=== PATIENT | female | born 1950 | race African-American/Black ===

== ENCOUNTER 2017-03-15 13:24 | Emergency (ER) | payer OTHER ==
[2017-03-15] MEDS ORDERED: DIPH/PERTUSS(ACELL)/TETANUS VAC/PF 0.5 ML SYR (>=10YO) IM ONE (14:03)
[2017-03-15] MEDS ORDERED: LIDOCAINE 1% INJ-PF (10 MG/ML) 30 ML SDV INJ ONE (14:03)
--- NOTE | 2017-03-15 14:55 | ER Document Report ---
HPI - HPI Patient complains to provider of: Finger laceration Onset: This afternoon Onset/Duration: Sudden Quality of pain: Achy Pain Level: 1 Context: Patient states that she was putting water into a plastic container and the container cut her right fourth fingertip. Patient with laceration to the pad of her finger. Patient is uncertain when her last tetanus immunization was Associated Symptoms: Other - Finger laceration Exacerbated by: Denies Relieved by: Denies Similar symptoms previously: No Recently seen / treated by doctor: No - ROS ROS below otherwise negative: Yes Systems Reviewed and Negative: Yes All other systems reviewed and negative - NEURO Neurology: DENIES: Weakness - CARDIOVASCULAR Cardiovascular: DENIES: Chest pain - GASTROINTESTINAL Gastrointestinal: DENIES: Nausea - REPRODUCTIVE Reproductive: DENIES: : - DERM Skin Color: Normal Skin Problems: Laceration Past Medical History - General Information source: Patient - Social History Smoking Status: Current Every Day Smoker Chew tobacco use (# tins/day): No Frequency of alcohol use: None Drug Abuse: None Family History: Reviewed & Not Pertinent - Past Medical History Cardiac Medical History: Reports: Hx Hypertension Pulmonary Medical History: Reports: Hx Asthma - childhood Denies: Hx Tuberculosis Renal/ Medical History: Denies: Hx Peritoneal Dialysis Past Surgical History: Reports: Hx Hysterectomy, Hx Orthopedic Surgery - right foot - Immunizations Hx Diphtheria, Pertussis, Tetanus Vaccination: No Vertical Provider Document - CONSTITUTIONAL Agree With Documented VS: Yes Exam Limitations: No Limitations General Appearance: WD/WN, No Apparent Distress - INFECTION CONTROL TRAVEL OUTSIDE OF THE [place] IN LAST 30 DAYS: No - HEENT HEENT: Atraumatic, Normocephalic - NECK Neck: Normal Inspection - RESPIRATORY Respiratory: No Respiratory Distress O2 Sat by Pulse Oximetry: 98 - CARDIOVASCULAR Pulses: Normal: Radial - MUSCULOSKELETAL/EXTREMETIES Musculoskeletal/Extremeties: TERRY BOONE - NEURO Level of Consciousness: Awake, Alert, Appropriate Motor/Sensory: No Motor Deficit - DERM Integumentary: Warm, Dry, Laceration - 1 cm lac to volar pad of r 4th finger distal phalanx Course - Vital Signs Vital signs: Temp Pulse Resp BP Pulse Ox 98.7 F 72 18 118/63 98 03/15/17 13:44 03/15/17 13:44 03/15/17 13:44 03/15/17 13:44 03/15/17 13:44 Procedures - Laceration/Wound Repair Right 4th digit Wound length (cm): 1 Wound's Depth, Shape: Linear Anesthetic type: 1% Lidocaine Wound Debrided: Minimal Wound Repaired With: Sutures Suture Size/Type: 5:0, Nylon Number of Sutures: 2 Layer Closure?: No Post-procedure wound care: Sterile dressing applied Post-procedure NV exam normal: Yes Complications: No Discharge - Discharge Clinical Impression: Finger laceration Qualifiers: Encounter type: initial encounter Finger: ring finger Damage to nail status: without damage Foreign body presence: without foreign body Laterality: right Qualified Code(s): S61.214A - Laceration without foreign body of right ring finger without damage to nail, initial encounter Condition: Stable Disposition: HOME, SELF-CARE Instructions: Laceration Care (OM), Tetanus Immunization Given ([facility]) Additional Instructions: Return immediately for any new or worsening symptoms Followup with your primary care provider, call tomorrow to make a followup appointment Suture removal in 8 days Referrals: YARELY BERNAL, [ACTIVE STAFF] - Follow up as needed
[2017-03-15 15:07] VITALS: BP 127/64
== END 2017-03-15 15:07 | disposition home or self-care (01) ==
LOC: ER 13:24
PROC: 0HQFXZZ Repair Right Hand Skin, External Approach (ICD-10-PCS; principal; 2017-03-15)
DX: S61.214A Laceration without foreign body of right ring finger without damage to nail, initial encounter (principal); W45.8XXA Other foreign body or object entering through skin, initial encounter; Y93.89 Activity, other specified; F17.200 Nicotine dependence, unspecified, uncomplicated; I10 Essential (primary) hypertension
CPT/HCPCS: 12001; 99282; 90471; 90715; J3490

== ENCOUNTER 2017-03-23 16:03 | Emergency (ER) | payer OTHER ==
[2017-03-23 16:11] VITALS: BP 135/73
--- NOTE | 2017-03-23 17:00 | ER Document Report ---
ED Suture/Wound Recheck - General Chief Complaint: Suture Removal Stated Complaint: REMOVE STITCHES Time Seen by Provider: 03/23/17 16:57 Mode of Arrival: Ambulatory Information source: Patient Notes: Patient had sutures replaced 8 days ago. She denies any problems with the sutures. They are placed in her index finger. TRAVEL OUTSIDE OF THE [place] IN LAST 30 DAYS: No - HPI Treated in ED (days ago): 8 Previous ED treatment: Laceration repair Quality of pain: No pain Symptoms since procedure: No complaints - Related Data Allergies/Adverse Reactions: ESAU Inhibitors [Esau Inhibitors] Allergy (Verified 03/23/17 16:11) ACEINHIBITORS [ESAU Inhibitors] Allergy (Verified 03/23/17 16:11) Past Medical History - General Information source: Patient - Social History Smoking Status: Never Smoker Frequency of alcohol use: None Drug Abuse: None Family History: Reviewed & Not Pertinent - Past Medical History Cardiac Medical History: Reports: Hx Hypertension Pulmonary Medical History: Reports: Hx Asthma - childhood Denies: Hx Tuberculosis Renal/ Medical History: Denies: Hx Peritoneal Dialysis Past Surgical History: Reports: Hx Hysterectomy, Hx Orthopedic Surgery - right foot. Denies: Hx Appendectomy, Hx Bowel Surgery, Hx Section, Hx Cholecystectomy, Hx Coronary Artery Bypass Graft, Hx Gastric Bypass Surgery, Hx Herniorrhaphy, Hx Mastectomy, Hx Pacemaker, Hx Tonsillectomy, Hx Tubal Ligation - Immunizations Hx Diphtheria, Pertussis, Tetanus Vaccination: No Review of Systems - Review of Systems Constitutional: denies: Chills, Fever Neurological/Psychological: denies: Numbness, Tingling Physical Exam - Vital signs Vitals: Temp Pulse Resp BP Pulse Ox 98.0 F 69 18 135/73 H 96 03/23/17 16:09 03/23/17 16:09 03/23/17 16:03/23/17 16:03/23/17 16:09 Interpretation: Hypertensive - Skin Notes: Patient has [address] on the volar surface of the index finger. No signs of infection. They are removed without incident by me. Course - Vital Signs Vital signs: Temp Pulse Resp BP Pulse Ox 98.0 F 69 18 135/73 H 96 03/23/17 16:09 03/23/17 16:09 03/23/17 16:03/23/17 16:03/23/17 16:09 Discharge - Discharge Clinical Impression: Visit for suture removal Condition: Stable Disposition: HOME, SELF-CARE Instructions: Suture Removal
== END 2017-03-23 17:05 | disposition home or self-care (01) ==
LOC: ER 16:03
DX: Z48.02 Encounter for removal of sutures (principal); I10 Essential (primary) hypertension; Z88.8 Allergy status to other drugs, medicaments and biological substances